=== PATIENT | male | born 1990 | race Caucasian/White ===

== ENCOUNTER 2022-12-02 08:18 | Inpatient (IN) | payer OTHER, SELFPAY ==
[2022-12-02] VITALS (12 sets, daily range): BP systolic 111–140; BP diastolic 58–87; PULSE 53–78; RESP 12–20; TEMP 36–37.3; O2SAT 94–98; BMI 27.0; BMI 27.8
--- NOTE | ~2022-12-02 | CT_ITS ---
EXAMINATION: CT ABDOMEN AND PELVIS WITH CONTRAST CLINICAL INFORMATION: Right lower quadrant pain COMPARISON: None available. TECHNIQUE: Multidetector volumetric images were obtained from the superior aspect of the liver through the pubic symphysis following administration 85 mL of Omnipaque 350 intravenous contrast. Sagittal and coronal reformatted images were obtained on the technologist's workstation. Oral contrast: Yes This CT examination was performed using dose optimization techniques as appropriate, variously including the following: *Automated exposure control *Adjustment of mA and/or kV according to patient size (this includes techniques or standardized protocols for targeted exams where dose is matched to indication/reason for exam; i.e. extremities or head) *Use of iterative reconstruction technique DLP: 496 mGy-cm FINDINGS: LUNG BASES: The visualized lung bases are unremarkable. LIVER, GALLBLADDER, AND BILIARY TREE: The liver is normal in size, shape, and attenuation. No focal hepatic lesion or biliary ductal dilatation is present. The gallbladder is unremarkable with no evidence of radiopaque gallstones, gallbladder wall thickening, or obvious pericholecystic inflammatory changes. PANCREAS: Unremarkable. SPLEEN: Unremarkable. ADRENAL GLANDS: Unremarkable. KIDNEYS AND URETERS: The kidneys are normal in size, shape, and attenuation. No hydronephrosis, hydroureter, or calculi seen. No perinephric stranding. BLADDER: Unremarkable. GASTROINTESTINAL TRACT: The small and large bowel are unremarkable. The tip of the appendix is upper normal in size measuring 8 mm. There is stranding of the fat surrounding the tip of the pancreas. Appearance is suggestive of early appendiceal tip appendicitis. No evidence of perforation or abscess. ABDOMINAL WALL: No significant hernia is appreciated. LYMPH NODES: Normal. VASCULAR: Unremarkable. PELVIC VISCERA: Unremarkable. OSSEOUS STRUCTURES: Unremarkable. CT/CT abdomen pelvis w IV con IMPRESSION: Acute appendicitis. Findings will be communicated by the [place] work flow finish sander. Fleischner guidelines were followed.
--- NOTE | 2022-12-02 08:39 | ED_ITS ---
HPI - Abdominal Pain General Chief Complaint: Abdominal Pain Stated Complaint: LRQ pain Time Seen by Provider: 12/02/22 08:30 Source: patient Mode of arrival: ambulatory Limitations: no limitations History of Present Illness HPI narrative: RLQ pain starting this morning, no fever, no nausea or vomiting, no surgery. Dysuria no hematuria MD elicited complaint: abdominal pain Pain Consistency: intermittent Severity: mild Related Data Allergies Allergy/AdvReac Type Severity Reaction Status Date / Time Sulfa (Sulfonamide Allergy Unknown Verified 12/02/22 08:25 Antibiotics) Review of Systems Review of Systems Yes all other systems are reviewed and are negative Comments: RLQ abdominal pain PMFSH Social History Social History Advance Directives: No Advance Directives Information Provided: No Physical Exam ED Vital Signs: Vital Signs - 24 hr 12/02/22 08:21 12/02/22 10:07 12/02/22 11:19 Temperature 98.7 F 98.2 F 98.2 F Pulse Rate 74 66 57 Respiratory Rate 17 18 18 Blood Pressure 129/75 111/68 120/74 Pulse Oximetry 98 97 97 Oxygen Delivery Method Room Air Room Air Room Air BMI result Body Mass Index 27.0 Const General: healthy appearing Nutritional Appearance: average body habitus Orientation/consciousness: oriented to person and patient oriented x3 Limitations: no limitations HENMT Head: Yes normal to inspection Ears: external ears normal General nose exam: Normal external nose present Mouth: Normal oral and palatal mucosa present and oropharynx normal Throat: Yes posterior oropharynx normal Eyes General: appearance normal, both eyes and all related structures Neck Neck: Yes normal visual inspection Chest Chest palpation & inspection: normal inspection of the chest Resp Auscultation: clear to auscultation bilaterally Cardio Jugular venous distension: no JVD Rate: regular rate Rhythm: regular rhythm Heart sounds: S1 normal heart sound present and S2 normal heart sound present GI Other: RLQ guarding, no rebound Palpation (GI): Tenderness to palpation present (GI) Auscultation: normal bowel sounds General: Yes no CVA tenderness Back/Spine/Pelvis Back: no CVA tenderness Skin General skin exam: no rashes or lesions noted Neuro General: oriented to person and patient oriented x3 Cranial nerves: Yes CN's II-XII intact bilaterally Motor exam (neuro): 5/5 motor strength present throughout Extrem General: Yes normal to inspection Psych Appearance: grossly normal Course Reevaluation(s) Reevaluation #1: patient with physical exam consistent with appendicitis confirmed with CT will admit to Dr. Machuca Time: 15:24 Reevaluation #2: I spent 40 minutes of critical care, with interventions, assessments, speaking to patient, consultants, and family. Medical Decision Making Differential Diagnosis Differential Diagnoses: The differential diagnosis associated with the presentation includes (appendicitis, renal colic, kidney stone, diverticulitis, gastritis) Consult Healthcare Provider Management of the patient was discussed with: Ux Information Architect (surgery Dr. Machuca) Lab Data MDM Lab Attestation statement: I reviewed the patient's lab results. 12/02/22 08:34 12/02/22 08:34 Labs: Lab Results 12/02/22 12/02/22 12/02/22 Range/Units 08:34 08:34 08:48 WBC 11.6 H (4.8-10.8) X10*3/uL RBC 4.76 (4.60-5.80) X10*6/uL Hgb 13.7 L (14.0-18.0) g/dl Hct 40.8 L (42.0-52.0) % MCV 85.7 (80.0-98.0) fL MCH 28.8 (27.0-33.0) pg MCHC 33.6 (31.0-36.0) g/dl RDW 13.9 (11.0-16.0) % Plt Count 354 (160-400) X10*3/uL MPV 9.3 L (9.4-12.4) fL Immature Gran % (Auto) 0.3 (0.0-0.4) % Neut % (Auto) 72.5 (45-73) % Lymph % (Auto) 12.2 L (20-40) % [place] % (Auto) 8.9 (2-11) % Eos % (Auto) 5.2 H (0-4) % Baso % (Auto) 0.9 (0-2) % Lymph # (Auto) 1.4 (1.2-4.9) X10*3/uL [place] # (Auto) 1.0 (0.1-1.2) X10*3/uL Eos # (Auto) 0.6 H (0.0-0.4) X10*3/uL Baso # (Auto) 0.1 (0.0-0.2) X10*3/uL Abs Immat Gran (auto) 0.04 H (0.00-0.03) X10*3/uL Absolute Neuts (auto) 8.4 H (2.0-8.3) x10*3/uL Absolute Nucleated RBC 0.000 (0.0-0.012) X10*3/uL Nucleated RBC % (auto) 0.0 (0.0-0.2) /100WBC Sodium 141 (135-145) mmol/L Potassium 4.7 (3.3-5.1) mmol/L Chloride 107 (96-108) mmol/L Carbon Dioxide 25 (22-29) mmol/L Anion Gap 14 (12-20) BUN 12 (9-16) mg/dL Creatinine 0.87 (0.5-1.4) mg/dL Estim Creat Clear Calc 107.9 Estimated GFR > 60 Random Glucose 96 (60-115) mg/dL Calcium 9.1 (8.4-10.2) mg/dL Total Bilirubin 0.4 (0.0-1.0) mg/dL AST 28 (5-37) U/L ALT 35 (0-40) U/L Alkaline Phosphatase 102 (39-117) U/L Total Protein 7.5 (6.5-8.0) g/dL Albumin 4.1 (3.5-5.0) g/dL Urine Color Yellow Urine Appearance Clear Urine pH 6.0 (5.0-9.0) Ur Specific [place] 1.020 (1.005-1.025) Urine Protein Negative (Neg-Trace) mg/dL Urine Glucose (UA) Negative (Negative) mg/dL Urine Ketones Negative (Negative) mg/dL Urine Blood Negative (Negative) Urine Nitrite Negative (Negative) Ur Leukocyte Esterase Negative (Negative) Independent Interpretation I performed an independent interpretation of an: CT Scan (fatty infiltration around appendix and cecum) Radiology Impression Discussion of test interpretation with radiology: I have reviewed the radiologis t's reading. Medications Administered Discontinued Medications Generic Name Dose Route Start Last Admin Trade Name Freq PRN Reason Stop Dose Admin Sodium Chloride 500 mls @ 250 mls/hr 12/02/22 09:00 12/02/22 14:34 Ns IVCONT 12/02/22 10:59 Infused .Q2H TIM Infusion Iohexol 100 ml 12/02/22 12:23 12/02/22 12:23 Iohexol 350 Mg/Ml 100 Ml Infus..Btl IV 12/02/22 12:24 85 ml ONCE ONE Administration Discharge Plan Discharge Clinical Impression: Acute appendicitis Patient Disposition: Admitted As Inpatient
[2022-12-02 08:40] LABS: MANUAL DIFF FLAG NO
[2022-12-02 08:46] LABS: Basophils Absolute Auto 0.1 X10*3/uL (0.0-0.2); Basophils Percent Auto 0.9 % (0-2); Eosinophils Absolute Auto 0.6 X10*3/uL (0.0-0.4); Eosinophils Percent Auto 5.2 % (0-4); Hematocrit 40.8 % (42.0-52.0); Hemoglobin 13.7 g/dl (14.0-18.0); Imm Gran Abs Auto 0.04 X10*3/uL (0.00-0.03); Imm Gran Pct Auto 0.3 % (0.0-0.4); Lymphocytes Absolute Auto 1.4 X10*3/uL (1.2-4.9); Lymphocytes Percent Auto 12.2 % (20-40); Mean Corpuscular HGB Conc 33.6 g/dl (31.0-36.0); Mean Corpuscular Hemoglobin 28.8 pg (27.0-33.0); Mean Corpuscular Volume 85.7 fL (80.0-98.0); Mean Platelet Volume 9.3 fL (9.4-12.4); Monocytes Percent Auto 8.9 % (2-11); Neutrophils Absolute Auto 8.4 x10*3/uL (2.0-8.3); Neutrophils Percent Auto 72.5 % (45-73); Platelet Count 354 X10*3/uL (160-400); Red Blood Count 4.76 X10*6/uL (4.60-5.80); Red Cell Distribution Width 13.9 % (11.0-16.0); White Blood Count 11.6 X10*3/uL (4.8-10.8)
[2022-12-02] MEDS: 0.9 % Sodium Chloride 500 ML 250 ML IVCONT (08:55)
[2022-12-02 09:00] LABS: Appearance Urine Clear; Color Urine Yellow; Glucose Urine UA Negative (Negative); Leukocyte Esterase Urine Negative (Negative); Nitrite Urine Negative (Negative); Urine Blood Negative (Negative); Urine Ketones Negative (Negative); Urine Protein Negative (Neg-Trace)
[2022-12-02 11:54] LABS: Alanine Aminotransferase 35 U/L (0-40); Albumin Level 4.1 g/dL (3.5-5.0); Alkaline Phosphatase 102 U/L (39-117); Anion Gap 14 (12-20); Aspartate Amino Transferase 28 U/L (5-37); Bilirubin Total 0.4 mg/dL (0.0-1.0); Blood Urea Nitrogen 12 mg/dL (9-16); Calcium 9.1 mg/dL (8.4-10.2); Carbon Dioxide 25 mmol/L (22-29); Chloride 107 mmol/L (96-108); Creatinine Clr Calc Pharmacy 107.9; Estimated Glomerular Filt Rate > 60; Glucose Random 96 mg/dL (60-115); Potassium 4.7 mmol/L (3.3-5.1); Sodium 141 mmol/L (135-145); Total Protein 7.5 g/dL (6.5-8.0)
[2022-12-02] MEDS: iohexoL 350 MG/ML 100 ML INFUS..BTL IV (12:23)
--- NOTE | 2022-12-02 15:21 | P.HPGS_ITS ---
History of Present Illness History of Present Illness Date of Service: 12/02/22 Chief complaint: RLQ pain Narrative: Jesus Shoemaker is a 32 year old male with a history of exercise-induced asthma that is well controlled a history of gout that is managed with nightly allopurinol who is seen at the request of Dr. Valero because of abdominal pain with a leukocytosis and a CT demonstrating early appendicitis. Patient states he was doing well until about 230 this morning when he was awoken from sleep with severe right lower quadrant pain that continued to progress. He reports some vague abdominal complaints prior to this. When the pain progressed, he came to the emergency department. He denies any shortness of breath or chest pain. He denies any recent trauma. Review of Systems Review of Systems: Yes all other systems are reviewed and are negative Constitutional: Constitutional: Reports as per [facility] Past Medical History Functional capacity: independent ambulation Social History Social History Advance Directives: No Advance Directives Information Provided: No Meds Allergies Allergy/AdvReac Type Severity Reaction Status Date / Time Sulfa (Sulfonamide Allergy Unknown Verified 12/02/22 08:25 Antibiotics) Physical Exam Vital Signs: Vital Signs: Last Vital Signs Temp 98.2 F 12/02/22 11:19 Pulse 57 12/02/22 11:19 Resp 18 12/02/22 11:19 BP 120/74 12/02/22 11:19 Pulse Ox 97 12/02/22 11:19 O2 Del Method Room Air 12/02/22 11:19 BMI result Body Mass Index 27.0 The patient is non-toxic & in good spirits NC/AT, PERRLA, EOMI Mood, affect & judgment all appear appropriate Sclera anicteric conjunctiva pink and moist Oropharynx is clear with no aphthous ulcers, Mallampati class 2, mucous membra lauren moist Incidental torus palatini is noted Neck is supple with no masses, adenopathy or bruits Heart is regular, normal S1-S2 no rubs or murmurs Lungs are clear and equal anteriorly with no audible wheezing, rubs or dullness to percussion Abdomen is overweight with no demonstrable hernias. Tenderness in the right lower quadrant and McBurney's point is noted with some voluntary guarding. No HSM, rebound, rigidity, guarding, masses or bruits are present. Rectal exam is deferred Skin has good turgor and is free of rashes Extremities free of cyanosis clubbing edema Results Results Labs: Short CBC 12/02/22 Range/Units 08:34 WBC 11.6 H (4.8-10.8) X10*3/uL Hgb 13.7 L (14.0-18.0) g/dl Hct 40.8 L (42.0-52.0) % Plt Count 354 (160-400) X10*3/uL BMP 12/02/22 08:34 Sodium 141 Potassium 4.7 Chloride 107 Carbon Dioxide 25 BUN 12 Creatinine 0.87 Calcium 9.1 Liver Function 12/02/22 Range/Units 08:34 Total Bilirubin 0.4 (0.0-1.0) mg/dL AST 28 (5-37) U/L ALT 35 (0-40) U/L Alkaline Phosphatase 102 (39-117) U/L Albumin 4.1 (3.5-5.0) g/dL Urine 12/02/22 Range/Units 08:48 Urine Color Yellow Urine Appearance Clear Urine pH 6.0 (5.0-9.0) Ur Specific [place] 1.020 (1.005-1.025) Urine Protein Negative (Neg-Trace) mg/dL Urine Glucose (UA) Negative (Negative) mg/dL Abdomen CT scan report/results: report reviewed and image reviewed CT scan - pelvis: report reviewed and image reviewed Assessment and Plan (1) Acute appendicitis: Status: Acute (2) Asthma: Status: Acute (3) Gout: Status: Acute Plan The patient's was at the bedside. I explained options including IV antibiotics, bowel rest and medical management which may or may not fail verses laparoscopic appendectomy. After discussion of the activity restrictions postoperatively and the inherent risks of bleeding, infection, need for open surgery, the unlikely but possible issue of postoperative complications that could require another procedure and the possibility of negative pathology or finding unexpected pathology such as tumor or malignancy was also discussed. The patient seemed understand his options and wants to proceed with surgery. The risks of a gout flare from the stress of surgery was also disclosed. The patient and his 's questions seemed to be satisfactorily answered. The option of a 2nd opinion was also offered but declined. Patient is admitted to my service. NPO, IV fluid, analgesics and antiemetics as needed. 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 Time Spent With Patient Time: Total time managing care of this patient today ____ minutes. Quality Stroke Does the patient have a stroke diagnosis?: No VTE Prior VTE?: No VTE Risk Level:: Surgical - moderate VTE Device Contraindication: N/A - Device Ordered VTE Drug Contraindication: Treatment Not Indicated Procedures Date of Service Date of Service: 12/02/22
--- NOTE | 2022-12-02 15:36 | W.PM.OPN ---
Operative Note Operative Note Date of Service: 12/02/22 Narrative: Preop diagnosis: [Acute appendicitis] Postop diagnosis: [] Procedure: [] Surgeon: Mac Machuca MD Assist: [] Anesthesia: [GET; local: ___] Estimated blood loss: [3cc] Specimen: [] Intraoperative findings: [] Indications: [The patient is a 32-year-old gentleman with a history of exercise-induced asthma who only requires a rescue inhaler, and a history of gout managed with allopurinol who presented to the emergency department with progressive abdominal pain, leukocytosis and CT that confirmed early acute appendicitis. Options including medical management with IV antibiotics versus 2nd opinion versus operative management were reviewed and apparently understood by the patient and his . I recommended proceeding with a laparoscopic, possibly open appendectomy with the inherent risks of bleeding, infection, need for open surgery, possibility of normal pathology, possibility of encountering unexpected pathology such as a tumor or malignancy. Activity restrictions postoperatively to minimize hernia were also discussed and apparently understood. The patient seemed understand his options and wanted to proceed.] Procedure: [The patient was identified in the holding area and again in the operating room. An appropriate time-out was performed. The patient had voided hia bladder coordinator of evaluation and Ancef, 2gm IV on-call. Sequential compression stockings were placed. The patient was induced in general endotracheal anesthesia administered with excellent effect. The abdomen was widely prepped and draped in the usual manner for surgery using Chlorprep. Preemptive local was used at all trocar insertion sites. The abdomen was accessed using a Veress needle. A transverse 5mm stab incision was made in the supra umbilical midline and the Veress needle inserted without incident, an appropriate drop test performed and a pneumoperitoneum of 15 mmHg was obtained using carbon dioxide. Opening pressure was 6 mmHg. Next, the abdomen was accessed with a 30 degree/5 mm laparoscoped over Optiview trocar technique without incident. In examining the Veress needle site, no evidence of bowel or other injury was present. The remaining trocars, a 5 mm suprapubic and 12 mm left lower quadrant were placed under direct laparoscopic vision with preemptive analgesia. The patient was then positioned in Trendelenburg, banked left. The appendix was identified and tracked down to the cecum. Adhesions from the appendix to the pericolic gutter were present and needed to be lysed. This was tracked to the cecal base and the appendiceal base on the cecum dissected. A window was made in the mesoappendix and the mesoappendix carefully dissected using the 5 mm LigaSure [place] tip. An 45mm Endo-DIANE stapler, purple load, was placed across the appendiceal base on the cecum the and fired with good hemostasis and closure. There was some minimal ooze from the staple line that was rendered hemostatic with a 5 mm clip network security administrator. The specimen was placed in an Endo-Catch bag and delivered through the 12 mm port in the left lower quadrant. Operative field was irrigated and inspected for hemostasis which was good. Patient was returned to neutral position, the abdomen deflated and the trocars removed. 12 mm fascia was closed with 0- Polysorb using a suture Passer and direct laparoscopic vision and skin closed with 4-0 Monocryl subcuticular sutures. The abdomen was washed and dried, Mastisol and Steri-Strips applied followed by Band-Aids. Patient tolerated the procedure well and was sent to the recovery in stable condition. All sponge instrument counts were correct. At the patient's request, I spoke with his , Marycruz (telephone [phone]) in the ICU waiting room regarding the operation and postoperative plan. Her questions seemed to be satisfactorily answered.]
--- NOTE | 2022-12-02 15:39 | PHA.MEDREC ---
Pharmacy Consult ? Medication Reconciliation Pharmacy has completed the medication reconciliation.
--- NOTE | 2022-12-02 18:15 | MHC.CM.PN ---
CM met with admitted patient with bed assignment pending. A&Ox4. Employed. No DME/services. 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 HCP reviewed, completed and signed. Copies given. Uploaded into [facility] and [facility]. HCP/ Marycruz Shoemaker ([phone]). D/C plan: Home without services. Pt to arrange transport home. CM will follow for any discharge needs.
--- NOTE | 2022-12-02 19:43 | P.CONAN_ITS ---
HPI - Anesthesia Eval Consult details Narrative: Acute appendicitis PMF Active Problems Active Problems: All Active Problems (Updated 12/02/22 @ 15:25 by Mac Machuca MD) Gout (Acute) Asthma (Acute) Acute appendicitis (Acute) Past Medical History Medical History (Updated 12/02/22 @ 19:44 by Heraclio Farr MD) Asthma Gout Functional capacity: independent ambulation Family History Family history of problems with anesthesia: No Surgical History History of Problems with Anesthesia: No Social History Social History Advance Directives: No Advance Directives Information Provided: No service: No Current occupational status: employed Meds Allergies Allergy/AdvReac Type Severity Reaction Status Date / Time Sulfa (Sulfonamide Allergy Unknown Verified 12/02/22 08:25 Antibiotics) Active Medications: Current Medications Allopurinol (Allopurinol 100 Mg Tablet) 100 mg PO DAILY TIM Docusate Sodium (Docusate Sodium 100 Mg Capsule) 200 mg PO BID TIM Hydromorphone HCl (Hydromorphone Hcl 0.5 Mg/0.5 Ml Syringe) 0.25 mg IVPUSH Q2H PRN; Protocol PRN Reason: Pain, Moderate(Pain Scale 4-6) Lactated Ringer's (Lr) 1,000 mls @ 100 mls/hr IVCONT .Q10H TIM Acetaminophen (Ofirmev) 1,000 mg in 100 mls @ 400 mls/hr IV Q6H TIM Stop: 12/03/22 09:44 Ibuprofen (Ibuprofen 600 Mg Tablet) 600 mg PO Q6H PRN PRN Reason: Pain, Moderate(Pain Scale 4-6) Ondansetron HCl (Ondansetron Hcl 4 Mg/2 Ml Vial) 4 mg IVPUSH Q6H PRN PRN Reason: Nausea and Vomiting Home Medications Medication Instructions Recorded Confirmed Last Taken Type allopurinol 100 mg tablet 100 mg PO BEDTIME 12/02/22 12/02/22 12/01/22 History levocetirizine 5 mg tablet (Xyzal) 5 mg PO BEDTIME PRN Allergy 12/02/22 12/02/22 12/01/22 History Symptoms Exam Exam Date and Time: December 02, 20221942 Height,Weight and Vital Signs: Height 5 ft 6 in Weight 76 kg Last Vital Signs Temp 99.1 F 12/02/22 18:53 Pulse 61 12/02/22 18:53 Resp 20 12/02/22 18:53 BP 140/87 H 12/02/22 18:53 Pulse Ox 96 12/02/22 18:53 O2 Del Method Room Air 12/02/22 18:53 Pertinent Lab Results Pertinent Lab Results: Laboratory Tests 12/02/22 12/02/22 12/02/22 08:34 08:34 08:48 WBC 11.6 H RBC 4.76 Hgb 13.7 L Hct 40.8 L MCV 85.7 MCH 28.8 MCHC 33.6 RDW 13.9 Plt Count 354 MPV 9.3 L Immature Gran % (Auto) 0.3 Neut % (Auto) 72.5 Lymph % (Auto) 12.2 L [place] % (Auto) 8.9 Eos % (Auto) 5.2 H Baso % (Auto) 0.9 Lymph # (Auto) 1.4 [place] # (Auto) 1.0 Eos # (Auto) 0.6 H Baso # (Auto) 0.1 Abs Immat Gran (auto) 0.04 H Absolute Neuts (auto) 8.4 H Absolute Nucleated RBC 0.000 Nucleated RBC % (auto) 0.0 Sodium 141 Potassium 4.7 Chloride 107 Carbon Dioxide 25 Anion Gap 14 BUN 12 Creatinine 0.87 Estim Creat Clear Calc 107.9 Estimated GFR > 60 Random Glucose 96 Calcium 9.1 Total Bilirubin 0.4 AST 28 ALT 35 Alkaline Phosphatase 102 Total Protein 7.5 Albumin 4.1 Urine Color Yellow Urine Appearance Clear Urine pH 6.0 Ur Specific [place] 1.020 Urine Protein Negative Urine Glucose (UA) Negative Urine Ketones Negative Urine Blood Negative Urine Nitrite Negative Ur Leukocyte Esterase Negative Airway Mallampati Class: II TM Dist: >3cm Neck ROM: Full Denture: Upper Loose/Missing/Broken Teeth: No Heart: RRR Lungs: CTA Assessment and Plan Assessment Anesthesia Assessment: Anesthesia Plan Discussed Final Anesthetic Review Family History of Problems with Anesthesia: No History of Problems with Anesthesia: No NPO: Yes ASA Class: II Final Preanesthetic Review: No Changes in Pt Med Stat, Meds/Allgs Chart Reviewed, Consent Obtained/Reviewed and Anes Risks/Benef Reviewed Patient Risk: Intermediate Procedure Risk: Intermediate Anesthetic Plan Anesthetic Plan: GA Disposition: Standard PACU
[2022-12-02] MEDS: Lactated Ringers 1,000 ML 100 ML IVCONT (22:39)
[2022-12-03 04:00] VITALS: BP 100/55; PULSE 65; RESP 16; TEMP 36.1; O2SAT 97
[2022-12-03 05:41] LABS: Basophils Percent Auto 0.1 % (0-2); Eosinophils Percent Auto 0.1 % (0-4); Hematocrit 36.8 % (42.0-52.0); Hemoglobin 12.3 g/dl (14.0-18.0); Imm Gran Abs Auto 0.04 X10*3/uL (0.00-0.03); Imm Gran Pct Auto 0.3 % (0.0-0.4); Lymphocytes Absolute Auto 0.7 X10*3/uL (1.2-4.9); Lymphocytes Percent Auto 5.9 % (20-40); MANUAL DIFF FLAG SCAN; Mean Corpuscular HGB Conc 33.4 g/dl (31.0-36.0); Mean Corpuscular Hemoglobin 28.8 pg (27.0-33.0); Mean Corpuscular Volume 86.2 fL (80.0-98.0); Mean Platelet Volume 9.9 fL (9.4-12.4); Monocytes Absolute Auto 0.2 X10*3/uL (0.1-1.2); Monocytes Percent Auto 1.9 % (2-11); Neutrophils Absolute Auto 11.1 x10*3/uL (2.0-8.3); Neutrophils Percent Auto 91.7 % (45-73); Platelet Count 319 X10*3/uL (160-400); Red Blood Count 4.27 X10*6/uL (4.60-5.80); Red Cell Distribution Width 13.9 % (11.0-16.0); SCAN SMEAR FLAG 1; White Blood Count 12.1 X10*3/uL (4.8-10.8)
[2022-12-03 06:13] LABS: SLIDE REVIEW VERIFIED
[2022-12-03 06:14] LABS: Anion Gap 11 (12-20); Blood Urea Nitrogen 11 mg/dL (9-16); Carbon Dioxide 26 mmol/L (22-29); Chloride 107 mmol/L (96-108); Creatinine Clr Calc Pharmacy 132.8; Estimated Glomerular Filt Rate > 60; Glucose Random 125 mg/dL (60-115); Potassium 4.7 mmol/L (3.3-5.1); Sodium 139 mmol/L (135-145)
[2022-12-03 07:25] VITALS: BP 121/62; PULSE 66; RESP 20; TEMP 36.1; O2SAT 97
--- NOTE | 2022-12-03 07:26 | P.PNGS_ITS ---
Subjective Subjective Date of Service: 12/03/22 Patient reports: feels better and tolerating liquids well Interval history: Patient reports expected incisional pain and some abdominal discomfort. He had 1 episode of vomiting when he woke up but is been tolerating water. He denies any additional pain, nausea, vomiting, difficulty breathing or shortness of breath. He has no other new complaints. Physical Exam 2 Vital Signs: Vital Signs: Last Vital Signs Temp 97.0 F 12/03/22 04:00 Pulse 65 12/03/22 04:00 Resp 16 12/03/22 04:00 BP 100/55 L 12/03/22 04:00 Pulse Ox 97 12/03/22 04:00 O2 Del Method Room Air 12/03/22 04:00 O2 Flow Rate 2 12/02/22 23:42 BMI result Body Mass Index 27.8 On exam he is nontoxic and in no acute distress He has no respiratory distress His dressings are clean and intact with appropriate incisional tenderness Objective Data Active Medications Albuterol Sulfate (Albuterol Sulfate (0.083%) 2.5 Mg/3 Ml Vial.Neb) 2.5 mg INHALE ONCE PRN PRN Reason: Wheezing Allopurinol (Allopurinol 100 Mg Tablet) 100 mg PO DAILY [facility] Last Admin: 12/02/22 23:22 Dose: Not Given Documented By: REDD Non-Admin Reason: s/p or Docusate Sodium (Docusate Sodium 100 Mg Capsule) 200 mg PO BID [facility] Last Admin: 12/02/22 22:46 Dose: Not Given Documented By: REDD Non-Admin Reason: pt nauseous post surgery Fentanyl (Fentanyl Citrate/Pf 100 Mcg/2 Ml Vial) 50 mcg IVPUSH Q5M PRN; P rotocol PRN Reason: Pain, Severe (Pain Scale 7-10) Hydromorphone HCl (Hydromorphone Hcl 0.5 Mg/0.5 Ml Syringe) 0.25 mg IVPUSH Q2H PRN; Protocol PRN Reason: Pain, Moderate(Pain Scale 4-6) Hydromorphone HCl (Hydromorphone Hcl 0.5 Mg/0.5 Ml Syringe) 0.5 mg IVPUSH Q5M PRN; Protocol PRN Reason: Pain, Severe (Pain Scale 7-10) Lactated Ringer's (Lr) 1,000 mls @ 100 mls/hr IVCONT .Q10H [facility] Last Admin: 12/03/22 02:45 Dose: Not Given Documented By: BRANDY Non-Admin Reason: IV Running Acetaminophen (Ofirmev) 1,000 mg in 100 mls @ 400 mls/hr IV Q6H [facility] Stop: 12/03/22 09:44 Last Infusion: 12/03/22 03:50 Dose: 0 mls/hr Documented By: BRANDY Ibuprofen (Ibuprofen 600 Mg Tablet) 600 mg PO Q6H PRN PRN Reason: Pain, Moderate(Pain Scale 4-6) Ondansetron HCl (Ondansetron Hcl 4 Mg/2 Ml Vial) 4 mg IVPUSH Q6H PRN PRN Reason: Nausea and Vomiting Oxycodone HCl (Oxycodone Hcl Immed Release 5 Mg Tablet) 5 mg PO ONCE PRN PRN Reason: Pain, Severe (Pain Scale 7-10) Labs 12/03/22 05:10 12/03/22 05:10 Labs: Laboratory Results - last 24 hr 12/02/22 12/02/22 12/02/22 08:34 08:34 08:48 MCV 85.7 MCH 28.8 MCHC 33.6 RDW 13.9 Plt Count 354 MPV 9.3 L Immature Gran % (Auto) 0.3 Neut % (Auto) 72.5 Lymph % (Auto) 12.2 L [place] % (Auto) 8.9 Eos % (Auto) 5.2 H Baso % (Auto) 0.9 Lymph # (Auto) 1.4 [place] # (Auto) 1.0 Eos # (Auto) 0.6 H Baso # (Auto) 0.1 Abs Immat Gran (auto) 0.04 H Absolute Neuts (auto) 8.4 H Absolute Nucleated RBC 0.000 Nucleated RBC % (auto) 0.0 Smear Tech's Comments Anion Gap 14 Estim Creat Clear Calc 107.9 Estimated GFR > 60 Random Glucose 96 Calcium 9.1 Total Bilirubin 0.4 AST 28 ALT 35 Alkaline Phosphatase 102 Total Protein 7.5 Albumin 4.1 Urine Color Yellow Urine Appearance Clear Urine pH 6.0 Ur Specific [place] 1.020 Urine Protein Negative Urine Glucose (UA) Negative Urine Ketones Negative Urine Blood Negative Urine Nitrite Negative Ur Leukocyte Esterase Negative 12/03/22 12/03/22 05:10 05:10 MCV 86.2 MCH 28.8 MCHC 33.4 RDW 13.9 Plt Count 319 MPV 9.9 Immature Gran % (Auto) 0.3 Neut % (Auto) 91.7 H Lymph % (Auto) 5.9 L [place] % (Auto) 1.9 L Eos % (Auto) 0.1 Baso % (Auto) 0.1 Lymph # (Auto) 0.7 L [place] # (Auto) 0.2 Eos # (Auto) 0.0 Baso # (Auto) 0.0 Abs Immat Gran (auto) 0.04 H Absolute Neuts (auto) 11.1 H Absolute Nucleated RBC 0.000 Nucleated RBC % (auto) 0.0 Smear Tech's Comments VERIFIED Anion Gap 11 L Estim Creat Clear Calc 132.8 Estimated GFR > 60 Random Glucose 125 H Calcium 9.0 Total Bilirubin AST ALT Alkaline Phosphatase Total Protein Albumin Urine Color Urine Appearance Urine pH Ur Specific [place] Urine Protein Urine Glucose (UA) Urine Ketones Urine Blood Urine Nitrite Ur Leukocyte Esterase Procedures Date of Service Date of Service: 12/03/22 Progress Note: A&P Assessment and plan (1) Acute appendicitis: Status: Acute (2) Asthma: Status: Acute (3) Gout: Status: Acute Plan Advanced to regular diet See orders regarding pain medication Suspect discharge later today after his labs return. Message left with his on her cell phone at [phone] Time Spent With Patient Time: Total time managing care of this patient today ____ minutes. Quality Stroke Does the patient have a stroke diagnosis?: No VTE Prior VTE?: No VTE Risk Level:: Surgical - moderate VTE Device Contraindication: N/A - Device Ordered VTE Drug Contraindication: Treatment Not Indicated
[2022-12-03] MEDS: Docusate Sodium 100 MG CAPSULE 200 MG PO (09:15)
[2022-12-03] MEDS: allopurinoL 100 MG TABLET PO (09:15)
[2022-12-03] MEDS: Ibuprofen 600 MG TABLET PO (10:37)
--- NOTE | 2022-12-03 10:49 | HO.POSTANES ---
Post Anesthesia Evaluation Post Anesthesia Evaluation Vital Signs: Vital Signs Temp Pulse Resp BP Pulse Ox O2 Del Method O2 Flow Rate 12/03/22 07:25 97.0 F 66 20 121/62 97 Room Air 12/03/22 04:00 97.0 F 65 16 100/55 L 97 Room Air 12/02/22 23:42 96.8 F 56 16 116/61 98 Nasal Cannula 2 Anesthesia: General Endotracheal-GETA Mental Status: Awake Pain Control: Satisfactory Nausea/Vomiting: None Hydration: Adequate Anesthesia-Related Issues: No Anes. Related Issues
--- NOTE | 2022-12-03 11:27 | PM.DS ---
DS: Providers Provider Date of Service: 12/03/22 Date of admission: 12/02/22 15:30 Primary care physician: Connor Kaur PA-C Consults: 12/02/22 14:46 Consult to General Surgery Stat Consulting Provider: [facility] [place] General Surgeons Reason for consultation: acute appendicitis Has provider been notified: Yes DS: Diagnosis Discharge Diagnosis (1) Acute appendicitis: Status: Acute (2) Asthma: Status: Acute (3) Gout: Status: Acute DS: Summary Hospital Course Hospital Course: See admitting H and P for full details. Briefly this 32-year-old gentleman with a history of gout and well-controlled asthma presented with abdominal pain localizing to his right lower quadrant and a CT consistent with early appendicitis. He was taken to the operating room after the a discussion of non operative management verses operative management and the risks, benefits and alternatives. He underwent an uneventful laparoscopic appendectomy and was admitted to the floor afterwards for pain management. On the morning of discharge, he had minimal pain with Motrin, was tolerating regular diet and was discharged in improved condition. Activity restrictions and work questions were answered. Follow-up next week. Time Spent with Patient Time attestation: Total time managing care of this patient today ____ minutes. Discharge coordination time: Less than 30 minutes Quality: Safe Use of Opioids Does Pt have an Active Cancer Diagnosis on the Problem List?: No Quality: Stroke Does the patient have a stroke diagnosis?: No Physical Exam Vital Signs: Vital Signs: Last Vital Signs Temp 97.0 F 12/03/22 07:25 Pulse 66 12/03/22 07:25 Resp 20 12/03/22 07:25 BP 121/62 12/03/22 07:25 Pulse Ox 97 12/03/22 07:25 O2 Del Method Room Air 12/03/22 07:25 O2 Flow Rate 2 12/02/22 23:42 BMI result Body Mass Index 27.8 DS: Data Data Completed and Pending Pending studies at discharge: Pending at discharge 12/02/22 20:44 Surgical [PTH] Routine Labs on day of discharge: Laboratory Results - last 24 hr 12/02/22 12/03/22 12/03/22 08:34 05:10 05:10 WBC 12.1 H RBC 4.27 L Hgb 12.3 L Hct 36.8 L MCV 86.2 MCH 28.8 MCHC 33.4 RDW 13.9 Plt Count 319 MPV 9.9 Immature Gran % (Auto) 0.3 Neut % (Auto) 91.7 H Lymph % (Auto) 5.9 L [place] % (Auto) 1.9 L Eos % (Auto) 0.1 Baso % (Auto) 0.1 Lymph # (Auto) 0.7 L [place] # (Auto) 0.2 Eos # (Auto) 0.0 Baso # (Auto) 0.0 Abs Immat Gran (auto) 0.04 H Absolute Neuts (auto) 11.1 H Absolute Nucleated RBC 0.000 Nucleated RBC % (auto) 0.0 Smear Tech's Comments VERIFIED Sodium 141 139 Potassium 4.7 4.7 Chloride 107 107 Carbon Dioxide 25 26 Anion Gap 14 11 L BUN 12 11 Creatinine 0.87 0.77 Estim Creat Clear Calc 107.9 132.8 Estimated GFR > 60 > 60 Random Glucose 96 125 H Calcium 9.1 9.0 Total Bilirubin 0.4 AST 28 ALT 35 Alkaline Phosphatase 102 Total Protein 7.5 Albumin 4.1 Discharge Plan Discharge Anticipated Discharge Date/Time: 12/03/22 Patient Disposition: Home, Self-Care Discharge Diagnosis: Acute appendicitis, status post lap appy 12/02/22 Referrals: Connor Kaur PA-C [Primary Care Provider] - 1 Week Mac Machuca MD [Physician] - 1 Week Discharge Medications: New oxycodone 5 mg tablet 5 mg PO Q4H PRN (Reason: pain) Qty: 14 0RF Rx Instructions: Partial Fill upon patient request. Continued allopurinol 100 mg tablet 100 mg PO BEDTIME levocetirizine [Xyzal] 5 mg Tablet 5 mg PO BEDTIME PRN (Reason: Allergy Symptoms) Discharge Orders: Discharge Order (Routine); Ordered 12/03/22 Ordered By: Mac Machuca Diet: Advance to usual diet Activity on Discharge: No heavy lifting Stand Alone Forms: Patient Portal Discharge page Activity Restrictions/Additional Instructions: You had a laparoscopic appendectomy performed by Dr. Machuca. It is normal to feel some minor abdominal discomfort due to the gas from the operation, however if you develop severe pain in your abdomen or chest, fevers over 100F, vomiting and are unable to keep liquids down, you should contact Dr. Machuca or report to the nearest emergency department. If your incisions become red, swollen and tender, draining pus or have problems, please contact Dr. Machuca report to the nearest emergency department. If you have bandages on your incisions, leave them in place for 48 hours, then remove them. You can shower but not soak in a tub after removing the bandages. If there are paper tapes known as butterflies/Steri-Strips, leave them fall off on their own in 1-2 weeks. You do not need to put another bandage on your incisions and lesser clothing rubs or irritates your incisions. You can shower after you removed your bandages in 48 hours, but do not soak in a tub, go in a pool, or go swimming in a [place] pond or ocean. Please let the paper tapes to dry after getting them wet. You do not need to replace a bandage on lesser clothing irritates the incision. You may find that pants with an elastic waist or suspenders are more comfortable than pants requiring a belt until your incisions completely heal. Because of the operation, you should not lift more than 20 lb for the next 4 weeks to minimize risk of incisional hernia. Any strenuous activity such as lifting more than 20 lb, digging, yoga, any athletic activity, like running, soccer, or other strenuous activity, lifting heavy bags/groceries, swimming, martial arts, or other strenuous athletic activities can cause hernias. If you have any questions regarding a specific activity, please ask Dr. Machuca. Avoiding strenuous activities will minimize the risk of incisional hernias. After a week, at your follow-up visit, Dr. Machuca will discuss returning to work on light duty with you. Since you can perform light duty, you are not disable, but your employer may not allow you to return until you have no restrictions; it is up to you to discuss this issue, as we cannot disclose personal information. Please bring any paperwork to that follow-up appointment from your employer. Please note that you are not disabled and need to discuss your work restrictions for medical reasons with your employer. If you were prescribed an antibiotic, continue taking the medication as prescribed. The anesthesia from the operation and pain medicine will cause constipation. You can purchase [id number] stool softener known as Colace/docusate, 100 mg and take 2 tablets in the morning with breakfast and 2 tablets in the evening after dinner to minimize this problem. Even if you are not taking narcotics, the anesthesia can cause constipation. You can take [id number] Tylenol/acetaminophen with xjev-erj-[id number] naproxen or ibuprofen to help with pain. Ice packs are also allowed to minimize pain and swelling. You should eat a high-protein, high-fiber, low-fat diet to optimize healing & take a multivitamin daily for the next month. Please resume any preoperative medications unless otherwise directed by Dr. Machuca. Please contact your primary care provider for a follow-up appointment in 2 weeks. Care Plan Goals: Good nutrition and adequate postoperative healing Health Concerns: Good nutrition, adequate postoperative healing Plan of Treatment: Good nutrition, adequate postoperative healing, continue gout & asthma treatment Assessment: Acute appendicitis, status post laparoscopic appendectomy 12/02/22
--- NOTE | 2022-12-03 12:14 | MHC.CM.PN ---
pt dcd home no skilled servceis ordered by
== END 2022-12-03 12:34 | disposition home or self-care (01) | DRG 343 ==
LOC: HO.ED 15:26 → HO.EDOVER 15:41 → HO.S3 21:33
PROVIDERS: Admitting Provider Surgery; Emergency Provider Emergency Medicine; PCP Physician Assistant Medical; Visit Provider Surgery
PROC: 0DTJ4ZZ Resection of Appendix, Percutaneous Endoscopic Approach (ICD-10-PCS; CPT 44970; principal; 2022-12-02 18:00)
DX: K35.80 Unspecified acute appendicitis (principal); J45.909 Unspecified asthma, uncomplicated; M10.9 Gout, unspecified; Z79.899 Other long term (current) drug therapy
CPT/HCPCS: 44970; 36415; 74177; 80048; 80053; 81003; 85025; 88304; 99283; J0131; J0690; J1100; J2250; J2405; J2550; J3010; Q9967

== ENCOUNTER → 2022-12-18 14:20 | Outpatient (BNVA) | payer OTHER, SELFPAY | PROVIDERS: PCP Physician Assistant Medical; Visit Provider Surgery ==